=== PATIENT | female | born 1965 | race Caucasian/White ===

== ENCOUNTER 2016-12-29 14:51 | Emergency (ER) | payer MEDICARE ==
[2016-12-29] MEDS ORDERED: HALOPERIDOL 5 MG/ML VIAL ONE (15:53)
[2016-12-29] MEDS ORDERED: PROMETHAZINE 25 MG/1 ML VIAL ONE (15:53)
== END 2016-12-29 18:07 | disposition home or self-care (01) ==
DX: R07.9 Chest pain, unspecified (principal); R10.31 Right lower quadrant pain; R51 Headache; R11.10 Vomiting, unspecified; Z86.718 Personal history of other venous thrombosis and embolism; Z86.711 Personal history of pulmonary embolism; Z79.01 Long term (current) use of anticoagulants; F17.210 Nicotine dependence, cigarettes, uncomplicated

== ENCOUNTER 2017-01-26 16:35 | Emergency (ER) | payer MEDICARE ==
[2017-01-26] MEDS ORDERED: ASPIRIN CHEW 81 MG TABLET PO STA (16:49)
[2017-01-26] MEDS ORDERED: ONDANSETRON 4 MG/2 ML VIAL IVP STA (16:58)
[2017-01-26] MEDS ORDERED: ONDANSETRON 4 MG/2 ML VIAL ONE (17:01)
[2017-01-26] MEDS ORDERED: methylPREDNISolone SUCCINATE 125 MG/2 ML VIAL IVP STA (18:21)
[2017-01-26] MEDS ORDERED: methylPREDNISolone SUCCINATE 125 MG/2 ML VIAL IVP ONE (18:25)
[2017-01-26] MEDS ORDERED: IOPAMIDOL-300 100 ML VIAL IVP ONE (19:11)
[2017-01-26] MEDS ORDERED: ACETAMINOPHEN 500 MG TABLET PO ONE (20:01)
[2017-01-26] MEDS ORDERED: ACETAMINOPHEN 325 MG TABLET PO STA (20:01)
== END 2017-01-26 20:05 | disposition home or self-care (01) ==
DX: R07.9 Chest pain, unspecified (principal); F41.9 Anxiety disorder, unspecified; M79.7 Fibromyalgia; Z86.718 Personal history of other venous thrombosis and embolism; Z86.711 Personal history of pulmonary embolism; Z79.01 Long term (current) use of anticoagulants; F17.200 Nicotine dependence, unspecified, uncomplicated
CPT/HCPCS: 36415; 71020; 71275; 80053; 83690; 83880; 84484; 85025; 85610; 85730; 93005; 93010; 96374; 96375; 99284; A9270; Q9967

== ENCOUNTER 2017-02-24 13:22 | Emergency (ER) | payer MEDICARE ==
[2017-02-24] MEDS ORDERED: ASPIRIN CHEW 81 MG TABLET PO STA (14:44)
[2017-02-24] MEDS ORDERED: ASPIRIN CHEW 81 MG TABLET ONE (14:50)
[2017-02-24] MEDS ORDERED: KETOROLAC 60 MG/2 ML VIAL IVP STA (15:29)
[2017-02-24] MEDS ORDERED: KETOROLAC 60 MG/2 ML VIAL IM STA (15:32)
[2017-02-24] MEDS ORDERED: KETOROLAC 30 MG/ML VIAL ONE (15:34)
== END 2017-02-24 15:50 | disposition home or self-care (01) ==
DX: F41.9 Anxiety disorder, unspecified (principal); R07.9 Chest pain, unspecified; R03.0 Elevated blood-pressure reading, without diagnosis of hypertension; M79.7 Fibromyalgia; F17.200 Nicotine dependence, unspecified, uncomplicated; Z86.718 Personal history of other venous thrombosis and embolism; Z86.711 Personal history of pulmonary embolism; Z79.01 Long term (current) use of anticoagulants; Z59.0 Homelessness